=== PATIENT | male | born 2000 | race African-American/Black ===

== ENCOUNTER 2019-10-22 14:14 | Emergency (ER) | payer MEDICAID, OTHER ==
[~2019-10-22] VITALS: Ht 182.9 cm; Wt 79.5 kg
[2019-10-22] MEDS ORDERED: morphine 4 MG/ML inj SYRINge IV ONE ×2 (14:40→15:35)
[2019-10-22] MEDS ORDERED: ondansetron/PF 4mg/2ml inj IV ONE (14:40)
[2019-10-22 15:48] LABS: BASOPHILS # (AUTO) 0.1 X10'3 (0-0.2); BASOPHILS % (AUTO) 0.5 % (0-1); EOSINOPHILS # (AUTO) 0.1 X10'3 (0-0.9); EOSINOPHILS % (AUTO) 0.7 % (0-6); HEMATOCRIT 43.8 % (42.0-52.0); HEMOGLOBIN 14.7 g/dl (14.0-17.9); LYMPHOCYTES # (AUTO) 1.9 X10'3 (1.1-4.8); LYMPHOCYTES % (AUTO) 9.9 % (21-51); MEAN CORPUSCULAR HEMOGLOBIN 30.4 PG (27.0-31.0); MEAN CORPUSCULAR HGB CONC 33.5 g/dL (33.0-36.5); MEAN CORPUSCULAR VOLUME 90.8 FL (78-98); MEAN PLATELET VOLUME 10.1 FL (7.4-10.4); MONOCYTES # (AUTO) 1.7 X10'3 (0-0.9); MONOCYTES % (AUTO) 8.9 % (2-12); NEUTROPHILS # (AUTO) 15.2 X10'3 (1.8-7.7); PLATELET COUNT 188 X10'3 (140-440); RED BLOOD COUNT 4.83 X10'6 (4.70-6.10); RED CELL DISTRIBUTION WIDTH 12.8 % (11.5-14.5)
[2019-10-22] MEDS ORDERED: etomidate 2mg/ml inj. IV ONE (15:50)
[2019-10-22 16:03] LABS: ALANINE AMINOTRANSFERASE 48 U/L (12-78); ALBUMIN/GLOBULIN RATIO 1.1 (1.1-1.5); ALKALINE PHOSPHATASE 77 IU/L (46-116); ANION GAP 6 (8-16); ASPARTATE AMINO TRANSFERASE 36 U/L (10-37); BILIRUBIN,TOTAL 0.5 MG/DL (0.1-1.0); BLOOD UREA NITROGEN 10 MG/DL (7-18); BUN/CREATININE RATIO 10.2 (5.4-32.0); CHLORIDE 106 MMOL/L (99-107); CREATININE 0.98 MG/DL (0.60-1.10); GLUCOSE 112 MG/DL (70-104); POTASSIUM 3.8 MMOL/L (3.5-5.1); SODIUM 141 MMOL/L (135-145); TOTAL CARBON DIOXIDE 29.4 MMOL/L (24-32); TOTAL PROTEIN 7.5 G/DL (6.4-8.2); eGFR > 90 ML/MIN
[2019-10-22] MEDS ORDERED: propofol 1000mg/100ml bottle 100 ML IV ONE (16:06)
[2019-10-22] MEDS ORDERED: propofol 1000mg/100ml bottle 100 ML IV SCH (16:08)
--- NOTE | 2019-10-22 16:10 | NUR ---
dr. DEVRIES TO CHANGE SEDATION MEDICATION, RESP PRESENT, PT RESTING BUT EASLY TO AROUSE
[2019-10-22] MEDS ORDERED: propofol 10mg/ml 20ml vial IV ONE ×2 (16:15→16:45)
--- NOTE | 2019-10-22 16:39 | NUR ---
SPOKE TO PT MOTHER SHANNAN [phone], LET HER KNOW THAT WE R TANSFERING HIM TO [facility] FOR ORTHO CONSULT
--- NOTE | 2019-10-22 16:55 | NUR ---
Issac panda in [facility] - 10/22/19 at 1656 by BERENICE REPORT CALLED TO SHANNAN
--- NOTE | 2019-10-22 16:56 | NUR ---
REPORT CALLED TO PEYTON RN AT [facility] ER
--- NOTE | 2019-10-22 16:57 | NUR ---
REPORT GIVEN TO EMS FOR TRANSPORT
[2019-10-22 17:05] VITALS: BP 160/97
== END 2019-10-22 17:06 | disposition short-term general hospital (02) ==
LOC: ER 14:14
DX: S32.401A Unspecified fracture of right acetabulum, initial encounter for closed fracture (principal); S73.004A Unspecified dislocation of right hip, initial encounter; S72.051A Unspecified fracture of head of right femur, initial encounter for closed fracture; V89.1XXA Person injured in unspecified nonmotor-vehicle accident, nontraffic, initial encounter; Y93.89 Activity, other specified; Y92.89 Other specified places as the place of occurrence of the external cause; Y99.8 Other external cause status
CPT/HCPCS: 27257; 36415; 71045; 72170; 73502; 80053; 85025; 96374; 96375; 96376; 99152; 99153; 99285; J2270; J2405; J2704